=== PATIENT | female | born 1985 | race Caucasian/White ===

== ENCOUNTER → 2020-12-02 11:38 | Outpatient (CLI) | payer BC, SELFPAY ==
[2020-12-02 12:19] LABS: Add Manual Diff / Slide Review NO; Basophils Absolute Auto 0 /uL (0-100); Basophils Percent Auto 0.6 % (0-2); Eosinophils Absolute Auto 100 /uL (0-450); Eosinophils Percent Auto 1.7 % (2-4); Hematocrit 39.6 % (36-46); Hemoglobin 13.3 g/dL (12.0-16.0); Lymphocytes Absolute Auto 1700 /uL (1100-4500); Mean Corpuscular HGB Conc 33.6 % (30-36); Mean Corpuscular Hemoglobin 30.7 PG (26-34); Mean Corpuscular Volume 91.3 fL (80-100); Monocytes Absolute Auto 400 /uL (0-900); Monocytes Percent Auto 7.3 % (3-14); Neutrophils Absolute Auto 3700 /uL (1500-7000); Neutrophils Percent Auto 61.4 % (50-75); Platelet Count 249 X10^3/uL (150-400); Red Blood Cell Count 4.34 X10^6/uL (4.0-5.2); Red Cell Distribution Width 13.2 % (11.6-14.8)
[2020-12-02 12:36] LABS: Alanine Aminotransferase 14 IU/L (<35); Albumin 4.1 g/dL (3.5-5.0); Albumin Globulin Ratio 1.4 (1.0-2.8); Alkaline Phosphatase 76 U/L (38-126); Aspartate Aminotransferase 25 IU/L (14-36); BUN Creatinine Ratio 16.5 (6-22); Bilirubin Total 0.3 mg/dL (0.2-1.3); Blood Urea Nitrogen 14 mg/dL (7-17); C-Reactive Protein Quant 0.9 mg/dL (<1.0); Calcium 9.8 mg/dL (8.4-10.2); Carbon Dioxide 27 mmol/L (22-32); Chloride 102 mmol/L (98-107); Estimated Glomerular Filt Rate > 60.0 mL/min (>60); Glucose 94 mg/dL (70-100); HEMOLYSIS < 15 (0-50); Lactate Dehydrogenase 355 U/L (313-618); Potassium 4.3 mmol/L (3.4-5.1); Sodium 137 mmol/L (137-145); Total Protein 7.1 g/dL (6.3-8.2)
[2020-12-02 12:45] LABS: Erythrocyte Sedimentation Rate 7 MM/HR (0-20)
[2020-12-02 13:05] LABS: TSH w/ Reflex to FT4 1.96 uIU/mL (0.47-4.68)
== END ==
PROVIDERS: PCP Family Medicine; Referring Provider Family Medicine; Visit Provider Family Medicine
DX: R59.1 Generalized enlarged lymph nodes (principal)
CPT/HCPCS: 36415; 80053; 83615; 84443; 85025; 85651; 86140

== ENCOUNTER → 2020-12-12 13:38 | Outpatient (CLI) | payer BC, SELFPAY ==
[2020-12-15 22:04] LABS: Growth Hormone 0.6 ng/mL (0.0-10.0)
[2020-12-16 10:30] LABS: Percent Free Testosterone 1.87 % (0.50-2.80); Testosterone Free 0.61 ng/dL (0.10-0.85); Testosterone Total 32.8 ng/dL (10.0-55.0)
== END ==
PROVIDERS: PCP Family Medicine; Referring Provider Family Medicine; Visit Provider Family Medicine
DX: L73.2 Hidradenitis suppurativa (principal); R53.83 Other fatigue; R63.5 Abnormal weight gain; R59.1 Generalized enlarged lymph nodes; L68.0 Hirsutism; R53.82 Chronic fatigue, unspecified
CPT/HCPCS: 36415; 82627; 83498; 84402; 84403; 86277

== ENCOUNTER → 2020-12-14 09:33 | Outpatient (CLI) | payer BC, SELFPAY ==
[2020-12-22 08:54] LABS: Cortisol Fr ug/24hr urine 21 ug/24 hr (6-42); Cortisol, Free, Urine 10 ug/L (Undefined)
== END ==
PROVIDERS: PCP Family Medicine; Referring Provider Family Medicine; Visit Provider Family Medicine
DX: R59.1 Generalized enlarged lymph nodes (principal); R63.5 Abnormal weight gain
CPT/HCPCS: 82530

== ENCOUNTER → 2021-04-12 08:15 | Outpatient (CLI) | payer BC, SELFPAY ==
[2021-04-12 10:33] LABS: Prolactin 7.6 ng/mL (3.0-18.6)
[2021-04-12 10:49] LABS: Follicle Stimulating Hormone 6.35 mIU/mL
[2021-04-12 11:05] LABS: Estradiol, Total 65.7 pg/mL
[2021-04-13 06:22] LABS: Sex Hormone Binding Globulin 44.7 nmol/L (24.6-122.0)
== END ==
PROVIDERS: PCP Family Medicine; Referring Provider Student in an Organized Health Care Education/Training Program; Visit Provider Student in an Organized Health Care Education/Training Program
DX: L68.0 Hirsutism (principal)
CPT/HCPCS: 36415; 82533; 82670; 83001; 83002; 84146; 84270